=== PATIENT | female | born 1970 | race Caucasian/White ===

== ENCOUNTER 2016-05-25 13:45 | Emergency (ER) | payer OTHER ==
[2016-05-25 13:59] VITALS: BP 146/90; PULSE 72; TEMP 98.1; BMI 23.8
[2016-05-25 14:00] LABS: URINE APPEARANCE Clear; URINE BILIRUBIN Negative (NEGATIVE); URINE GLUCOSE (UA) Negative (NEGATIVE); URINE KETONE Negative (NEGATIVE); URINE NITRITE Negative (NEGATIVE); URINE PROTEIN Negative (NEGATIVE); URINE UROBILINOGEN 0.2 E.U/dl (0.2-1.0)
[2016-05-25 14:03] LABS: URINE COLOR YELLOW
[2016-05-25 14:06] LABS: URINE LEUK ESTERASE Trace (NEGATIVE)
[2016-05-25 14:07] LABS: URINE BLOOD 1+ (NEGATIVE)
--- NOTE | 2016-05-25 14:41 | PDOC ---
History of Present Illness - General Chief Complaint: Urinary Problem Stated Complaint: pain on urination Time Seen by Provider: 05/25/16 14:09 History Source: Patient Exam Limitations: No Limitations - History of Present Illness Initial Comments: 05/25/16 14:36 CHIEF COMPLAINT: Urinary frequency and burning since yesterday HISTORY OF PRESENT ILLNESS: 45-year-old female with history of prior UTIs and kidney stones presents complaining of UTI symptoms. She states she was feeling well until yesterday when she developed symptoms of burning on urination and urinary frequency. She states she had to get up all night long to go to the bathroom because of urgency. There is no flank pain. There is mild suprapubic discomfort. There is no fever. There is no vomiting. Patient denies any symptoms of a kidney stone. REVIEW OF SYSTEMS: GENERAL/CONSTITUTIONAL: No fever or chills. No weakness. No weight change. HEAD, EYES, EARS, NOSE AND THROAT: No change in vision. No ear pain or discharge. No sore throat. CARDIOVASCULAR: No chest pain or shortness of breath. RESPIRATORY: No cough, wheezing, or hemoptysis. GASTROINTESTINAL: No nausea, vomiting, diarrhea or constipation. No rectal bleeding. GENITOURINARY: Positive dysuria. Positive urinary frequency. No hematuria. No flank pain. Patient is postmenopausal. Last menstrual period was 2 years ago. MUSCULOSKELETAL: No joint or muscle swelling or pain. No neck or back pain. SKIN AND BREASTS: No rash or easy bruising. NEUROLOGIC: No headache, vertigo, loss of consciousness, or loss of sensation. PSYCHIATRIC: No depression or anxiety. ENDOCRINE: No increased thirst. No abnormal weight change. HEMATOLOGIC/LYMPHATIC: No anemia, easy bleeding, or history of blood clots. ALLERGIC/IMMUNOLOGIC: No hives or skin allergy. No latex allergy. 05/25/16 14:39 Past History - Past Medical History Allergies/Adverse Reactions: Allergies Allergy/AdvReac Type Severity Reaction Status Date / Time No Known Allergies Allergy Verified 05/25/16 13:46 Home Medications: Ambulatory Orders Cephalexin [Keflex] 500 mg PO TID #10 capsule 05/25/16 Kidney Stones: Yes - Psycho/Social/Smoking Cessation Hx Anxiety: No Suicidal Ideation: No Smoking History: Never smoked Hx Alcohol Use: Yes Drug/Substance Use Hx: No Substance Use Type: Alcohol *Physical Exam - Vital Signs Last Vital Signs Temp Pulse Resp BP Pulse Ox 98.1 F 72 16 146/90 100 05/25/16 13:46 05/25/16 13:46 05/25/16 13:46 05/25/16 13:46 05/25/16 13:46 - Physical Exam Comments: 05/25/16 14:38 GENERAL: The patient is awake, alert, and fully oriented, in no acute distress. HEAD: Normal with no signs of trauma. EYES: Pupils equal, round and reactive to light, extraocular movements intact, sclera anicteric, conjunctiva clear. ENT: Ears normal, nares patent, oropharynx clear without exudates. Moist mucous membranes. NECK: Normal range of motion, supple without lymphadenopathy, JVD, or masses. LUNGS: Breath sounds equal, clear to auscultation bilaterally. No wheezes, and no crackles. HEART: Regular rate and rhythm, normal S1 and S2 without murmur, rub or gallop. ABDOMEN: Soft, slight midline suprapubic tenderness, normoactive bowel sounds. No guarding, no rebound. No masses. BACK: No CVA tenderness, no flank tenderness. EXTREMITIES: Normal range of motion, no edema. No clubbing or cyanosis. No cords, erythema, or tenderness. NEUROLOGICAL: Cranial nerves II through XII grossly intact. Normal speech, normal gait. PSYCH: Normal mood, normal affect. SKIN: Warm, Dry, normal turgor, no rashes or lesions noted. ED Treatment Course - ADDITIONAL ORDERS Additional order review: Laboratory Results 05/25/16 13:40 Urine Color Yellow Urine Appearance Clear Urine pH 7.0 Ur Specific [place] 1.020 Urine Protein Negative Urine Glucose (UA) Negative Urine Ketones Negative Urine Blood 1+ H Urine Nitrite Negative Urine Bilirubin Negative Urine Urobilinogen 0.2 e.u/dl Ur Leukocyte Esterase Trace Urine HCG, Qual Negative Medical Decision Making - Medical Decision Making 05/25/16 14:39 Patient with history of recurrent UTIs and kidney stones presents with classic symptoms of cystitis. She has urinary frequency and burning. There is no fever and no vomiting. There is no pain to suggest the possibility of a kidney stone. Urinalysis reviewed and only has mild leukocyte Estrace positive. There are minimal white blood cells and there is 1+ blood. Although the urine is somewhat unimpressive, a urine culture has been performed. The patient will be treated with 3 days of cephalexin for probable UTI based on her symptoms. *DC/Admit/Observation/Transfer Diagnosis at time of Disposition: Urinary tract infection Qualifiers: Urinary tract infection type: acute cystitis Hematuria presence: without hematuria Qualified Code(s): N30.00 - Acute cystitis without hematuria - Discharge Dispostion Disposition: HOME Condition at time of disposition: Stable Admit: No - Prescriptions Prescriptions: Cephalexin [Keflex] 500 mg PO TID #10 capsule - Patient Instructions Printed Discharge Instructions: DI for Urinary Tract Infection (UTI) Additional Instructions: You were evaluated today for urinary burning and frequent urination. The urine testing shows a possible mild urinary tract infection. You can treat the infection by drinking extra fluids every day. Take cefalexin antibiotic 3 times a day for the next 3 days. The first dose was given in the emergency department. He should go to the pharmacy today to take her next dose this evening before bed. Watch for worsening symptoms of fever or vomiting. Normally, the symptoms should resolve in 24-48 hours with the antibiotic. Follow-up with your primary care physician or return to the emergency department for any severe or progressive symptoms.
[2016-05-25] MEDS ORDERED: CEPHALEXIN MONOHYDRATE 500 MG CAPSULE (UD) PO ONE (14:43)
[2016-05-25] MEDS ORDERED: CEPHALEXIN MONOHYDRATE 500 MG CAPSULE (UD) ONE (14:44)
[2016-05-25] MEDS ORDERED: PHENAZOPYRIDINE HCL 100 MG TABLET (FP) PO ONE (14:45)
[2016-05-25] MEDS ORDERED: PHENAZOPYRIDINE HCL 100 MG TABLET (FP) ONE (14:45)
--- NOTE | 2016-05-29 09:10 | PDOC ---
Patient Follow-up (Call Back) - Post ED Follow - Up Condition at time of discharge: Stable Disposition at time of original discharge: HOME - Disposition Additional Instructions/Notes: Urine culture was reviewed. Greater than 1000 colonies of Staphylococcus saprophyticus resistant to cephalosporins. Patient was treated with Keflex originally. Keflex discontinued, new prescription for Bactrim DS 1 twice a day for 7 days sent to her pharmacy. Culture results show sensitivity to Bactrim.
== END 2016-05-25 14:54 | disposition home or self-care (01) ==
LOC: FER 13:45
DX: N30.00 Acute cystitis without hematuria (principal); Z87.440 Personal history of urinary (tract) infections; Z87.442 Personal history of urinary calculi
CPT/HCPCS: 81003; 84703; 87086; 87186; 99282-25

== ENCOUNTER 2017-06-23 09:03 | Emergency (ER) | payer OTHER ==
[2017-06-23 09:11] VITALS: BP 141/87; PULSE 61; TEMP 98.2; BMI 24.7
--- NOTE | 2017-06-23 09:18 | PDOC ---
History of Present Illness - General Chief Complaint: Urinary Problem Stated Complaint: URINARY PROBLEMS Time Seen by Provider: 06/23/17 09:17 - History of Present Illness Initial Comments: 06/23/17 10:45 Chief complaint dysuria History of present illness: Patient with dysuria frequency and suprapubic pain since last night. UTI 1 year ago with similar symptoms, uncomplicated. Review of systems: No fever/chills, back pain, nausea, vomiting, diarrhea, upper abdominal pain, vaginal bleeding or discharge, vaginal irritation or itching. Postmenopausal for 2 years. Past medical history: Otherwise healthy female, occasional UTI in the past, kidney stone stable Social/family history reviewed and noncontributory Physical exam: Alert and oriented well-developed well-nourished no acute distress cheerful and cooperative Afebrile, vital signs normal No pallor or icterus HEENT clear Neck supple without bruit mass or nodes Lungs clear CV regular without murmur rub or gallop Abdomen nondistended, normal bowel sounds. Soft without mass or organomegaly. There is mild tenderness to deep palpation over the bladder, midline. The bladder is not distended. There is no guarding or rebound. There is no CVAT Impression: Probable UTI Plan: Urinalysis and urine culture, empiric therapy until culture results are available. Lots of fluids. Return if there is fever, nausea, or back pain. Fully ambulatory and in no pain or other distress upon discharge to follow-up as recommended Past History - Past Medical History Allergies/Adverse Reactions: Allergies Allergy/AdvReac Type Severity Reaction Status Date / Time azithromycin Allergy Vomiting Unverified 05/30/16 15:43 Home Medications: Ambulatory Orders Sulfamethoxazole/Trimethoprim [Bactrim Ds Tablet] 1 tab PO BID #14 tablet COPD: No Kidney Stones: Yes - Reproductive History Is Patient Now?: No (#): 1 Para: 1 - Suicide/Smoking/Psychosocial Hx Smoking History: Never smoked Have you smoked in the past 12 months: No Information on smoking cessation initiated: No Hx Alcohol Use: No Drug/Substance Use Hx: No Substance Use Type: Alcohol *Physical Exam - Vital Signs Last Vital Signs Temp Pulse Resp BP Pulse Ox 98.2 F 61 18 141/87 100 06/23/17 09:03 06/23/17 09:03 06/23/17 09:03 06/23/17 09:03 06/23/17 09:03 *DC/Admit/Observation/Transfer Diagnosis at time of Disposition: Urinary tract infection Qualifiers: Urinary tract infection type: acute cystitis Hematuria presence: without hematuria Qualified Code(s): N30.00 - Acute cystitis without hematuria - Discharge Dispostion Disposition: HOME Condition at time of disposition: Stable Admit: No - Prescriptions Prescriptions: Sulfamethoxazole/Trimethoprim [Bactrim Ds Tablet] 1 tab PO BID #14 tablet - Referrals - Patient Instructions Printed Discharge Instructions: DI for Urinary Tract Infection (UTI) Additional Instructions: Drink lots of fluids If there is vaginal itching irritation or discharge as a result of the antibiotic, use vaginal cream or suppository such as Micatin Lotrimin or Terazol. Check culture results in 2 days If no improvement 2-3 days, or if there is fever or back pain, nausea or vomiting, recheck ER or primary physician immediately. - Post Discharge Activity
[2017-06-23 09:37] LABS: HCG,QUALITATIVE URINE NEGATIVE
[2017-06-23 09:42] LABS: PH,URINE 5.5 (4.5-8); URINE APPEARANCE Clear; URINE BILIRUBIN Negative (NEGATIVE); URINE GLUCOSE (UA) Negative (NEGATIVE); URINE KETONE Negative (NEGATIVE); URINE LEUK ESTERASE Negative (NEGATIVE); URINE NITRITE Negative (NEGATIVE); URINE PROTEIN Negative (NEGATIVE); URINE UROBILINOGEN 0.2 (0.2-1.0)
[2017-06-23 10:05] LABS: URINE BLOOD Trace-intact (NEGATIVE); URINE COLOR YELLOW
[2017-06-23 12:04] LABS: EPI CELLS RARE /HPF; URINE BACTERIA NONE SEEN /hpf (NEGATIVE); URINE RBC 0-2 /hpf (0-3); URINE WBC 0-2 (0-5)
== END 2017-06-23 10:39 | disposition home or self-care (01) ==
LOC: FER 09:03
DX: N30.00 Acute cystitis without hematuria (principal)
CPT/HCPCS: 81003; 81015; 84703; 87086; 99283-25